=== PATIENT | male | born 1970 | race Caucasian/White ===

== ENCOUNTER 2017-03-13 18:44 | Emergency (ER) | payer SELFPAY ==
[~2017-03-13] VITALS: Ht 170.2 cm; Wt 68.0 kg
[2017-03-13 18:56] VITALS: BP 158/102
[2017-03-13] MEDS ORDERED: HYDROCODONE/APAP 10/325MG 1 EA TABLET PO ONE (19:30)
[2017-03-13] MEDS ORDERED: HYDROCODONE/APAP 10/325MG 1 EA TABLET ONE (19:33)
== END 2017-03-13 20:24 | disposition home or self-care (01) ==
LOC: ER 18:45
DX: L03.113 Cellulitis of right upper limb (principal); S60.221A Contusion of right hand, initial encounter; W18.39XA Other fall on same level, initial encounter; Y93.89 Activity, other specified; Y92.89 Other specified places as the place of occurrence of the external cause; Y99.8 Other external cause status
CPT/HCPCS: 73130-TC; A4606; Z7610